=== PATIENT | female | born 1950 | race Asian ===

== ENCOUNTER → 2017-08-16 | Outpatient (CLI) | payer OTHER | LOC: CIMAGING 10:17 → MERGE 10:17 | PROVIDERS: ATTEND Family Medicine | DX: Z12.31 Encounter for screening mammogram for malignant neoplasm of breast (principal) ==

== ENCOUNTER 2018-05-13 11:27 | Emergency (ER) | payer OTHER ==
[2018-05-13] MEDS ORDERED: ASPIRIN 81 MG CHEWABLE TAB PO ONE (11:48)
[2018-05-13] MEDS ORDERED: ONDANSETRON 4 MG/2 ML VIAL IVP ONE (11:51)
[2018-05-13] MEDS ORDERED: niCARdipine/NACL 200 ML IV SCH (12:00)
[2018-05-13] MEDS ORDERED: LABETALOL HCL 5 MG/ML 20 ML MDV IVP ONE (12:09)
[2018-05-13] MEDS ORDERED: HYOSCYAMINE SULFATE 0.125 MG TAB PO ONE (12:33)
[2018-05-13] MEDS ORDERED: MAG HYDROX/AL HYDROX/SIMETH 30 ML UDCUP PO ONE (12:33)
[2018-05-13] MEDS ORDERED: KETOROLAC 15 MG/1 ML SDV IVP ONE (13:11)
--- NOTE | 2018-05-13 13:14 | EDPHY ---
H & P Stated Complaint: cp x 10 ,sob, no travel , cough increases cp Time Seen by Provider: 05/13/18 11:36 HPI/ROS: This patient was sent over from her family practitioners office [place] the [place] with chief complaint of chest pain and cough. She also has hypertension and explains that she has not taken her losartan yet today. She reports a cough that is dry hacking cough for the past 10 days or so and reports that she has had increased pain over the past 2 days anterior chest region associated with this. She describes this is achy in nature and worse with coughing. She reports that the pain is sharp in nature and severe. She has not taken any analgesics yet for the pain today. He does report certain movements also worsening pain such as bending forward. She has mild nausea associated with her symptoms. No vomiting. She came in by private car. ROS: Constitutional: No fevers HEENT: No significant nasal congestion. No sore throat. No ear pain. No sinus pain. Pulmonary: She reports mild dyspnea associated her symptoms over the past couple days. She denies any significant sputum production. No hemoptysis. Cardiovascular: She reports occasional heart palpitations described as an extra beat but no lower extremity swelling and no lightheadedness. No worsening of her discomfort with exertion. GI: No abdominal pain. Some nausea but no vomiting. Normal bowel movements. : No complaints. No flank pain or hematuria Integumentary: No rash or diaphoresis Neuro: No headache. 10 point review of symptoms is performed and otherwise negative with exception of pertinent positives and negatives listed in HPI and ROS Source: Patient Exam Limitations: No limitations - Medical/Surgical History PMH: Hypertension Type 2 diabetes Dyslipidemia Other PMH: HTN. DM. high Chol - Family History Significant Family History: No pertinent family hx - Social History Smoking Status: Never smoked Alcohol Use: Occasionally Drug Use: None - Physical Exam Exam: General Appearance: Alert, no distress. Eyes: Pupils equal and round no pallor or injection. ENT, Mouth: Mucous membranes moist. Respiratory: There are no retractions, lungs are clear to auscultation. Patient has chest wall tenderness anteriorly reproduces her symptoms. Cardiovascular: Regular rate and rhythm. No murmur gallop rub. No JVD. No peripheral edema. No calf swelling or tenderness Gastrointestinal: Abdomen is soft and nontender, no masses, bowel sounds normal. Neurological: GCS of 15 Skin: Warm and dry, no rashes. Musculoskeletal: Neck is supple nontender. Extremities are symmetrical, full range of motion. Psychiatric: Mood and affect are normal DIFFERENTIAL DIAGNOSIS: After history and physical exam differential diagnosis was considered for acute bronchitis, pneumonia, chest wall pain/costochondritis , pneumothorax, myocardial ischemic disease, GERD, aortic dissection, pulmonary embolism Constitutional: Initial Vital Signs Heart Rate 67 05/13/18 11:36 Respiratory Rate 16 05/13/18 11:36 Blood Pressure 174/98 H 05/13/18 11:36 O2 Sat (%) 97 05/13/18 11:36 O2 Delivery Mode Room Air Allergies/Adverse Reactions: No Known Allergies Allergy (Unverified 05/13/18 11:43) Home Medications: Medication Instructions Recorded Albuterol Hfa Anes Only [Proair 2 puffs IH Q4 PRN #1 mdi 05/13/18 Hfa Icu (*)] Azithromycin [Zithromax] 250 mg PO DAILY #6 tab 05/13/18 Losartan Potassium 05/13/18 Metformin HCl 05/13/18 SIMVASTATIN 05/13/18 Vitamin D3 05/13/18 Medical Decision Making - Diagnostics EKG Interpretation: 12 lead EKG performed at 11:40 a.m. Indication chest pain reveals sinus rhythm at 61 Intervals: Normal throughout [place]: Normal throughout ST segments: Normal throughout Overall assessment normal EKG Imaging Results: Two view chest x-ray: Consistent with bronchitis by my interpretation otherwise negative. Imaging: I viewed and interpreted images myself ED Course/Re-evaluation: IV, monitor, aspirin 324 p.o. I ordered labetalol IV for the patient's initial hypertension that was quite elevated but without intervention prior to this being given her blood pressure diminished to 140s over 90s and decided to hold this medication. Review of labs-normal POC CBC, basic metabolic panel, troponin and D-dimer Discussion: Patient's presentation is most consistent with bronchitis with chest wall pain consistent with costochondritis sternum muscle strain. I counseled regarding this. I think that she is hypertensive due to missing her losartan dose today but she does not have evidence of end-organ injury currently. Similarly we find no pneumonia, pneumothorax, widened mediastinum on workup after chest x-ray. She has a normal D-dimer coming with low risk effectively ruling out pulmonary embolism. I think dissection is also very unlikely in this patient. Normal EKG and troponin with atypical symptoms make coronary syndrome very unlikely. Given her marked improvement with treatment will plan to send her home with treatment have bronchitis-albuterol and Zithromax continue her antihypertensive and [id number] antacids as needed for any GERD symptoms. She understands need to follow up with primary care physician for any ongoing symptoms and return emergency department for any significant worsening despite the treatment plan. Received Levsin and a GI cocktail with slight improvement in that had Toradol with further improvement and was down to a 1 or 2/10 discomfort-not a baseline but tender chest wall time discharge home. - Data Points Laboratory Results: 05/13/18 05/13/18 05/13/18 12:23 12:00 11:59 POC Hgb 14.3 gm/dL gm/dL (12.6-16.3) POC Hct 42 % % (38-47) POC Sodium 143 mEq/L mEq/L 122 mEq/L L mEq/L (135-145) (135-145) POC Potassium 3.5 mEq/L mEq/L 2.4 mEq/L L* mEq/L (3.3-5.0) (3.3-5.0) POC Chloride 104 mEq/L mEq/L 84.0 mEq/L L mEq/L (97-110) (97-110) POC Total CO2 22 mEq/L mEq/L (22-31) POC BUN 11 mg/dL mg/dL 9 mg/dL mg/dL (7-23) (7-23) POC Creatinine 0.4 mg/dL L mg/dL 0.4 mg/dL L mg/dL (0.6-1.0) (0.6-1.0) POC Glucose 108 mg/dL H mg/dL 92 mg/dL mg/dL (70-100) (70-100) POC Calcium 8.4 mg/dL L mg/dL (8.5-10.4) POC Troponin I 0.01 ng/mL ng/mL (0.00-0.08) Medications Given: Discontinued Medications Al Hydroxide/Mg Hydroxide (Maalox Susp) 30 ml PO EDNOW ONE Stop: 05/13/18 12:34 Last Admin: 05/13/18 12:42 Dose: 30 ml Aspirin (Aspirin) 324 mg PO EDNOW ONE Stop: 05/13/18 11:49 Last Admin: 05/13/18 11:50 Dose: 324 mg Hyoscyamine Sulfate (Levsin, Hyomax-Sl) 0.125 mg PO EDNOW ONE Stop: 05/13/18 12:34 Last Admin: 05/13/18 12:42 Dose: 0.125 mg Ketorolac Tromethamine (Toradol) 15 mg IVP EDNOW ONE Stop: 05/13/18 13:12 Last Admin: 05/13/18 13:19 Dose: 15 mg Labetalol HCl (Trandate Injection) 20 mg IVP EDNOW ONE Stop: 05/13/18 12:10 Last Admin: 05/13/18 13:25 Dose: Not Given Morphine Sulfate (Morphine) 4 mg IVP EDNOW ONE Stop: 05/13/18 11:53 Last Admin: 05/13/18 11:58 Dose: 4 mg Ondansetron HCl (Zofran) 4 mg IVP EDNOW ONE Stop: 05/13/18 11:52 Last Admin: 05/13/18 11:57 Dose: 4 mg Point of Care Test Results: CBC CBC Collection Date 05/13/18 CBC Collection Time 11:54 WBC 5.8 RBC 4.3 HGB 13.5 HCT 39.4 PLT 414 Neut # 3.3 Neut 57.7 LYMPH # 2.0 LYMPH 34.2 Other WBC # 0.5 Other WBC 8.1 MCV 91.6 Chemistry 05/13/18 05/13/18 05/13/18 12:23 12:00 11:59 POC Sodium 143 mEq/L mEq/L 122 mEq/L L mEq/L (135-145) (135-145) POC Potassium 3.5 mEq/L mEq/L 2.4 mEq/L L* mEq/L (3.3-5.0) (3.3-5.0) POC Chloride 104 mEq/L mEq/L 84.0 mEq/L L mEq/L (97-110) (97-110) POC Total CO2 22 mEq/L mEq/L (22-31) POC BUN 11 mg/dL mg/dL 9 mg/dL mg/dL (7-23) (7-23) POC Creatinine 0.4 mg/dL L mg/dL 0.4 mg/dL L mg/dL (0.6-1.0) (0.6-1.0) POC Glucose 108 mg/dL H mg/dL 92 mg/dL mg/dL (70-100) (70-100) POC Calcium 8.4 mg/dL L mg/dL (8.5-10.4) POC Troponin I 0.01 ng/mL ng/mL (0.00-0.08) ISTAT H&H 05/13/18 12:23 POC Hgb 14.3 gm/dL gm/dL (12.6-16.3) POC Hct 42 % % (38-47) D-Dimer D-Dimer Collection Date 05/13/18 D-Dimer Collection Time 11:54 D-Dimer (ng/ml) LESS THAN 100 Departure - Departure Disposition: Home, Routine, Self-Care Clinical Impression: Chest wall pain Acute bronchitis Qualifiers: Bronchitis organism: unspecified organism Qualified Code(s): J20.9 - Acute bronchitis, unspecified Hypertension Qualifiers: Hypertension type: essential hypertension Qualified Code(s): I10 - Essential ( primary) hypertension Condition: Good Instructions: Acute Bronchitis (ED), Hypertension (ED), Chest Wall Pain (ED) Additional Instructions: Diagnoses: 1. Acute bronchitis 2. Chest wall pain 3. Hypertension A chest x-ray appears normal exception of some bronchitis today. Blood count is normal, electrolytes and heart enzyme are normal. No evidence of blood clot and workup. EKG is also normal today. Plan: Continue low start another medications Albuterol inhaler and Zithromax antibiotic in addition Follow up with primary care physician for any ongoing symptoms. Return for any significant worsening despite treatment plan. Referrals: Ryanne Serna DO [Primary Care Provider] - As per Instructions Prescriptions: Albuterol Hfa Anes Only [Proair Hfa Icu (*)] 2 puffs IH Q4 PRN #1 mdi PRN Reason: Wheezing Azithromycin [Zithromax] 250 mg PO DAILY #6 tab
[2018-05-13 14:13] VITALS: BP 152/81
--- NOTE | 2018-05-19 19:45 | CPEKG ---
Test Reason : OPEN Blood Pressure : / mmHG Vent. Rate : 061 BPM Atrial Rate : 060 BPM P-R Int : 153 ms QRS Dur : 095 ms QT Int : 419 ms P-R-T Axes : 015 005 022 degrees QTc Int : 422 ms Sinus rhythm Confirmed by Papo Alvarado ([id number]) on 05/19/2018 7:44:41 PM Referred By: Confirmed By:Papo Alvarado
== END 2018-05-13 14:14 | disposition home or self-care (01) ==
LOC: CED 11:27
DX: J20.9 Acute bronchitis, unspecified (principal); R07.89 Other chest pain; I10 Essential (primary) hypertension; E11.9 Type 2 diabetes mellitus without complications; E78.5 Hyperlipidemia, unspecified
CPT/HCPCS: 93005; 96374; 96375; 99284; J1885; J2270; J2405; 80048-ER; 82435-PO; 82565-PO; 82947-PO; 84132-PO; 84295-PO; 84484-ER; 84520-PO; 85014-ER

== ENCOUNTER → 2018-05-13 | Outpatient (CLI) | payer OTHER ==
[~2018-05-13] MED LIST: ASPIRIN 81 MG CHEWABLE TAB ONE
== END ==
LOC: CIMAGING 11:02
PROVIDERS: ATTEND Family Medicine
DX: J40 Bronchitis, not specified as acute or chronic (principal)
CPT/HCPCS: 71046-PO

== ENCOUNTER 2018-10-24 13:35 | Emergency (ER) | payer OTHER | END 2018-10-24 15:03 | disposition home or self-care (01) | LOC: CED 13:35 ==